=== PATIENT | male | born 1995 | race Caucasian/White ===

== ENCOUNTER 2020-10-07 06:22 | Emergency (ER) | payer OTHER ==
[~2020-10-07] VITALS: Ht 165.1 cm; Wt 65.8 kg
[2020-10-07 06:24] VITALS: BP 136/85
--- NOTE | 2020-10-07 06:24 | NUR ---
SEE COMPLETE ASSESSMENT FOR FUTHER DETAILS.
[2020-10-07] MEDS ORDERED: ACET-2619 PO (06:44)
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
[2020-10-07 07:17] VITALS: BP 128/82
--- NOTE | 2020-10-07 07:17 | NUR ---
PATIENT BIB P [facility]. PATIENT EXAMINED BY DR. LEE. PATIENT MEDICALLY CLEARED AND RELEASED IN CUSTODY IN STABLE CONDITION. ORIGINAL PRE-BOOK FORM GIVEN TO OFFICER [facility].
--- NOTE | 2020-10-07 07:23 | NUR ---
Note ayana in ED - 10/07/20 at 0726 by YANCY PATIENT BIB [facility]. PATIENT EXAMINED BY DR. LEE. PATIENT MEDICALLY CLEARED AND RELEASED IN CUSTODY IN STABLE CONDITION. ORIGINAL PRE-BOOK FORM GIVEN TO OFFICER JEROME.
== END 2020-10-07 07:17 ==
LOC: MED 06:22
DX: Z02.89 Encounter for other administrative examinations (principal); V98.8XXA Other specified transport accidents, initial encounter; Y93.89 Activity, other specified; Y92.89 Other specified places as the place of occurrence of the external cause; Y99.8 Other external cause status
CPT/HCPCS: 71045; 99283